=== PATIENT | female | born 1985 | race Caucasian/White ===

== ENCOUNTER 2019-01-22 19:48 | Emergency (ER) | payer OTHER ==
[2019-01-22 19:58] VITALS: BP 133/100; PULSE 66; TEMP 98.5; BMI 22.1
[2019-01-22] MEDS ORDERED: SODIUM CHLORIDE 1,000 ML IV ONE (20:23)
[2019-01-22] MEDS ORDERED: ONDANSETRON 4 MG/2 ML VIAL IVPB ONE (20:23)
[2019-01-22] MEDS ORDERED: ONDANSETRON 4 MG/2 ML VIAL ONE (20:25)
[2019-01-22] MEDS ORDERED: FAMOTIDINE 20 MG/50 ML IVPB 20 MG/50 ML MG IVPB ONE ×2 (20:45→20:48)
--- NOTE | 2019-01-22 20:47 | PDOC ---
Documentation entered by Gina Landin SCRIBE, acting as scribe for Beth Browne MD. Beth Browne MD: This documentation has been prepared by the varshaibe, Gina Landin SCRIBE, under my direction and personally reviewed by me in its entirety. I confirm that the documentation accurately reflects all work, treatment, procedures, and medical decision making performed by me. History of Present Illness - General Chief Complaint: Nausea/Vomiting Stated Complaint: N/V Time Seen by Provider: 01/22/19 20:07 History Source: Patient Exam Limitations: No Limitations - History of Present Illness Initial Comments: 01/22/19 20:59 Patient is a 33 year old female who presents to the ED with several episodes of NBNB nausea and vomiting since last night. Patient states she ate Thanksgiving leftovers when the nausea and vomiting began. Patient states she isn't able to uphold any foods or liquids. PAST MEDICAL HISTORY: no significant history PAST SURGICAL HISTORY: Transgender surgery FAMILY HISTORY: no pertinent history SOCIAL HISTORY: Pt lives with family and is employed. MEDICATIONS: reviewed ALLERGIES: NKA General:+ chills, + weakness No fevers, no weight loss HEENT: No change in vision. No sore throat,. No ear pain CardioVascular: No chest pain or shortness of breath Respiratory:No cough, or wheezing. Gastrointestinal:+nausea, +vomitting no diarrhea or constipation, No rectal bleeding Genitourinary: No dysuria, hematuria, or frequency Musculoskeletal: No joint or muscle pain or swelling Neurologic: No headache, vertigo, dizziness or loss of consciousness Psychiatric: nor depression Skin: No rashes or easy bruising Endocrine: no increased thirst or abnormal weight change Allergic: no skin or latex allergy All other systems reviewed and normal General: Well-nourished well-developed individual, no acute distress HEENT: Throat: Normal, tonsils normal, no erythema or exudate Neck: Supple, no meningeal signs, no lymphadenopathy Eyes::Pupils equal reactive and round, extraocular motion intact Chest: Nontender to palpation Cardiac: S1-S2 normal, regular rate and rhythm, no murmurs rubs or gallops Respiratory: Lungs clear to auscultation bilateral Abdomen: +mild tenderness epigastric.Soft, nondistended, normal bowel sounds, Extremities: Warm, dry, no cyanosis, clubbing, or edema Skin: No rashes Neuro: Alert and oriented x3, nonfocal exam, grossly intact, normal gait Psych: Normal mood and affect Assessment and plan: This is a 33-year-old female who comes in complaining of nausea vomiting x2 days. Patient states she has had multiple episodes of nausea and vomiting has been unable to keep anything in x2 days however her heart rate is normal and she does appear to be well-hydrated. Patient did have some mild epigastric tenderness for which she is given some Pepcid as is most likely secondary to some dyspepsia from all the vomiting Labs were sent and patient is being hydrated with normal saline and given antiemetics zofran 01/23/19 06:44 CT scan was negative for any acute pathology. Patient had an elevated white count however post fluids and antiemetics patient felt better patient discharged with prescriptions for antiemetics and will follow-up with her primary care doctor Past History - Past Medical History Allergies/Adverse Reactions: Allergies Allergy/AdvReac Type Severity Reaction Status Date / Time Iodine and Iodide Containing Allergy Verified 01/22/19 19:50 Produc shellfish derived Allergy Verified 01/22/19 19:50 Home Medications: Ambulatory Orders Estradiol 2 mg PO DAILY 01/22/19 Ondansetron [Zofran *Odt*] 4 mg SL TID #12 od.tablet 01/22/19 Asthma: No (CHILDHOOD) COPD: No - Psycho Social/Smoking Cessation Hx Smoking History: Never smoked Information on smoking cessation initiated: Yes *Physical Exam - Vital Signs Last Vital Signs Temp Pulse Resp BP Pulse Ox 98.5 F 66 16 133/100 100 01/22/19 19:51 01/22/19 19:51 01/22/19 19:51 01/22/19 19:51 01/22/19 19:51 ED Treatment Course - LABORATORY CBC & Chemistry Diagram: 01/22/19 20:25 01/22/19 20:25 - Medications Given in the ED: ED Medications Discontinued Medications Generic Name Dose Route Start Last Admin Trade Name Freq PRN Reason Stop Dose Admin Ondansetron HCl 8 mg 01/22/19 20:23 01/22/19 20:27 Zofran Injection IVPB 01/22/19 20:24 8 mg ONCE ONE Administration Discharge - Discharge Information Problems reviewed: Yes Clinical Impression/Diagnosis: Nausea & vomiting Qualifiers: Vomiting type: unspecified Vomiting Intractability: non-intractable Qualified Code(s): R11.2 - Nausea with vomiting, unspecified Gastritis Qualifiers: Gastritis type: unspecified gastritis Chronicity: acute Gastritis bleeding: without bleeding Qualified Code(s): K29.00 - Acute gastritis without bleeding Condition: Stable Disposition: HOME - Admission No - Additional Discharge Information Prescriptions: Ondansetron [Zofran *Odt*] 4 mg SL TID #12 od.tablet - Follow up/Referral Referrals: ON STAFF,NOT [Primary Care Provider] - - Patient Discharge Instructions Additional Instructions: Take an antiacid as needed for discomfort. For nausea take Zofran 1 tablet as often as every 6 hours as needed. Return to the emergency department immediately with ANY new, persistent or worsening symptoms. Continue any medications as previously prescribed by your physician. You should follow up with your primary doctor as soon as possible regarding today's emergency department visit. . Please make sure your doctor reviews the results of your emergency evaluation. Thank you for coming to the Emergency Department today for your care. It was a pleasure to see you today. Please note that your evaluation is INCOMPLETE until you follow-up with your doctor. - Post Discharge Activity
[2019-01-22 20:55] LABS: ALBUMIN 4.2 g/dl (3.4-5.0); BILIRUBIN,TOTAL 0.5 mg/dl (0.2-1); CALCIUM 8.9 mg/dl (8.5-10); CREATININE 0.8 mg/dl (0.55-1.3); POTASSIUM 3.3 mmol/L (3.5-5.1); TOT PROT 7.4 g/dl (6.4-8.2)
[2019-01-22 20:58] LABS: BASO % 0.2 % (0-2.0); EOS % 0.1 % (0-4.5); HEMATOCRIT 41.1 % (32.4-45.2); HEMOGLOBIN 13.8 GM/dl (10.7-15.3); LYMPH % 8.7 % (8-40); MCH 30.5 pg (25.7-33.7); MCHC 33.5 g/dl (32.0-36.0); MEAN CELL VOLUME 90.9 fl (80-96); MEAN PLT VOLUME 9.6 fl (7.5-11.1); MONO % 2.9 % (3.8-10.2); NEUT % 88.1 % (42.8-82.8); PLATELET COUNT 322 K/MM3 (134-434); RBC 4.52 M/mm3 (3.60-5.2); RDW 12.1 % (11.6-15.6); WHITE BLOOD COUNT 16.8 K/mm3 (4.0-10.8)
[2019-01-22] MEDS ORDERED: KETOROLAC TROMETHAMINE 30 MG/1 ML VIAL IVPUSH ONE (21:09)
[2019-01-22] MEDS ORDERED: MAG HYDROX/AL HYDROX/SIMETH 30 ML UNIT-DOSE CUP PO ONE (21:09)
[2019-01-22] MEDS ORDERED: MAG HYDROX/AL HYDROX/SIMETH 30 ML UNIT-DOSE CUP ONE (21:11)
[2019-01-22] MEDS ORDERED: KETOROLAC TROMETHAMINE 30 MG/1 ML VIAL ONE (21:11)
== END 2019-01-23 01:52 | disposition home or self-care (01) ==
LOC: FER 19:48
PROC: 3E033GC Introduction of Other Therapeutic Substance into Peripheral Vein, Percutaneous Approach (ICD-10-PCS; principal; 2019-01-22)
PROC: 3E0337Z Introduction of Electrolytic and Water Balance Substance into Peripheral Vein, Percutaneous Approach (ICD-10-PCS; 2019-01-22)
PROC: 3E033GC Introduction of Other Therapeutic Substance into Peripheral Vein, Percutaneous Approach (ICD-10-PCS; 2019-01-22)
PROC: 3E0333Z Introduction of Anti-inflammatory into Peripheral Vein, Percutaneous Approach (ICD-10-PCS; 2019-01-22)
PROC: 3E033NZ Introduction of Analgesics, Hypnotics, Sedatives into Peripheral Vein, Percutaneous Approach (ICD-10-PCS; 2019-01-22)
DX: K29.00 Acute gastritis without bleeding (principal); R11.2 Nausea with vomiting, unspecified; Z88.8 Allergy status to other drugs, medicaments and biological substances; Z91.013 Allergy to seafood; J45.998 Other asthma
CPT/HCPCS: 36415; 74177-TC; 76705-TC; 80053; 83690; 85025; 99283-25; J7030

== ENCOUNTER 2019-01-23 12:58 | Emergency (ER) | payer OTHER ==
[2019-01-23 13:11] VITALS: BP 140/85; PULSE 58; TEMP 98.7; BMI 49.6
--- NOTE | 2019-01-23 13:14 | PDOC ---
History of Present Illness - General Chief Complaint: Nausea/Vomiting Stated Complaint: N/V FOR THREE DAYS Time Seen by Provider: 01/23/19 13:06 History Source: Patient Exam Limitations: No Limitations - History of Present Illness Initial Comments: 01/23/19 13:13 HPI 33 year old female who presents to the ED with several episodes of NBNB nausea and vomiting x 2 days. Patient states she ate Thanksgiving leftovers when the symptoms started. Patient states she isn't able to uphold any foods/crackers or liquids. today symptoms continued unable to gloria zofran, a/w epigastric AP. unable to gloria PO intake. CT scan a/p from earlier today was negative for any acute pathology. small gallbladder polyp. Patient had an elevated white count however post fluids and antiemetics patient felt better patient discharged with prescriptions for antiemetics and will follow-up with her primary care doctor Labs and lytes with leukocytosis of 16.8K, low K 3.3. Lipase normal. She was given pepcid for dyspepsia, IVF and zofran. no new sick contacts. sexually active with boyfriend; last STD testing 6 mos ago and negative. also endorses vaginal discharge, but no dysuria, hematuria, urgency or frequency or changes with urination. PAST MEDICAL HISTORY: none PAST SURGICAL HISTORY: Transgender surgery - vaginoplasty, breast implants FAMILY HISTORY: no pertinent history SOCIAL HISTORY: Pt lives with family and is employed. +vaping nicotine use. + regular cannibis use, last used right before thanksgiving 2 days ago. MEDICATIONS: none ALLERGIES: NKA ROS: General: + chills, + weakness No fevers, no weight loss HEENT: No change in vision. No sore throat,. No ear pain CardioVascular: No chest pain or shortness of breath Respiratory:No cough, or wheezing. Gastrointestinal:+nausea, +vomiting +abdominal pain. no diarrhea or constipation, No rectal bleeding Genitourinary: No dysuria, hematuria, or frequency Musculoskeletal: No joint or muscle pain or swelling Neurologic: No headache, vertigo, dizziness or loss of consciousness Psychiatric: nor depression Skin: No rashes or easy bruising Endocrine: no increased thirst or abnormal weight change Allergic: no skin or latex allergy All other systems reviewed and normal Physical exam: General: Well-nourished well-developed individual, no acute distress HEENT: Throat: Normal, tonsils normal, no erythema or exudate Neck: Supple, no meningeal signs, no lymphadenopathy Eyes::Pupils equal reactive and round, extraocular motion intact Chest: Nontender to palpation Cardiac: S1-S2 normal, regular rate and rhythm, no murmurs rubs or gallops Respiratory: Lungs clear to auscultation bilateral Abdomen: +mild tenderness epigastric.Soft, nondistended, normal bowel sounds, Extremities: Warm, dry, no cyanosis, clubbing, or edema Skin: No rashes Neuro: Alert and oriented x3, nonfocal exam, grossly intact, normal gait Psych: Normal mood and affect 01/23/19 13:17 01/23/19 13:45 01/23/19 14:41 Past History - Past Medical History Allergies/Adverse Reactions: Allergies Allergy/AdvReac Type Severity Reaction Status Date / Time Iodine and Iodide Containing Allergy Verified 01/22/19 19:50 Produc shellfish derived Allergy Verified 01/22/19 19:50 Home Medications: Ambulatory Orders Estradiol 2 mg PO DAILY 01/22/19 Ondansetron [Zofran *Odt*] 4 mg SL TID #12 od.tablet 01/22/19 Cephalexin Monohydrate [Keflex -] 500 mg PO BID 5 Days #9 capsule 01/23/19 Metoclopramide HCl [Reglan -] 10 mg PO TID PRN #9 tablet 01/23/19 Asthma: No (CHILDHOOD) COPD: No - Psycho Social/Smoking Cessation Hx Smoking History: Never smoked Have you smoked in the past 12 months: No Information on smoking cessation initiated: Yes Hx Alcohol Use: No Drug/Substance Use Hx: No *Physical Exam - Vital Signs Last Vital Signs Temp Pulse Resp BP Pulse Ox 98.7 F 58 L 20 140/85 100 01/23/19 12:59 01/23/19 12:59 01/23/19 12:59 01/23/19 12:59 01/23/19 12:59 ED Treatment Course - LABORATORY CBC & Chemistry Diagram: 01/23/19 14:10 01/23/19 14:10 Medical Decision Making - Medical Decision Making 01/23/19 14:42 Vital Signs Temp Pulse Resp BP Pulse Ox 98.7 F 58 L 20 140/85 100 01/23/19 12:59 01/23/19 12:59 01/23/19 12:59 01/23/19 12:59 01/23/19 12:59 Vital signs reviewed and within normal limits, no fever, no systemic findings or symptoms. Abdomen is soft and minimally tender, no rebound or guarding or peritoneal findings Results from earlier this morning were reviewed including her laboratory work. She did have a leukocytosis of over 16 K, electrolytes are only notable for low potassium. lipase and lfts normal. CT was done and was unremarkable for any appendicitis or infection. Quadrant ultrasound with only gallbladder polyps but no stones or signs of cholecystitis. Patient returns today with similar symptoms and difficulty tolerating oral intake. Will trial IV Reglan, additional fluids, Pepcid and potassium repletion and reassess. Lab results today with improved white count down to 14 K, K still at 3.3, unclear if repleted yesterday. UA with nitrites and trace leuk esterase, blood and protein. Patient does have vaginal discharge and symptoms of a UTI so we will treat with antibiotics, Keflex course x1 week. Follow-up on urine cultures, not enough for microscopy. 01/23/19 14:51 on reassessment, feels improved. no nausea/vomiting here, gloria PO intake, completed K, IVF, reglan, ativan and abdomen soft nontender, sx are most likely enteritis related to recent holiday meal Cessation from vaping tobacco and cannabis is advised as there could be a component of hyperemesis related to cannabis use syndrome. Patient was given Ativan for the component of her symptoms with improvement. Pt to be discharged in stable condition. Patient made aware of clinical impression, treatment recommendations and disposition plan, return precautions discussed (including but not limited to new or persistent/worsening symptoms, pain, fevers, or signs of infection, chest pain, respiratory distress, inability to tolerate oral intake, dehydration, syncope, or neurologic changes) . Follow up with PMD and/or specialist as recommended, follow up information provided, take medications as instructed for duration of time. continue with supportive care, avoid triggers and precipitants. All questions answered to patient's satisfaction and expressed understanding and comfort with this. At the time of discharge, the patient is alert, clinically improved, tolerating po and verbalizes understanding of instructions, satisfied with the care received and felt comfortable with the plan. Patient does not suffer from an acute life- threatening medical condition at this time and is safe for outpatient follow- up. Discharge - Discharge Information Problems reviewed: Yes Clinical Impression/Diagnosis: Nausea & vomiting Qualifiers: Vomiting type: unspecified Vomiting Intractability: unspecified Qualified Code( s): R11.2 - Nausea with vomiting, unspecified UTI (urinary tract infection) Qualifiers: Urinary tract infection type: site unspecified Condition: Good Disposition: HOME - Admission No - Additional Discharge Information Prescriptions: Cephalexin Monohydrate [Keflex -] 500 mg PO BID 5 Days #9 capsule Metoclopramide HCl [Reglan -] 10 mg PO TID PRN #9 tablet PRN Reason: nausea vomiting - Follow up/Referral Referrals: [facility] [Provider Group] [facility] [Provider [facility]] - Patient Discharge Instructions Patient Printed Discharge Instructions: DI for Nausea -- Adult, DI for Vomiting -- Adult Additional Instructions: 1) Please follow-up with your primary care doctor in the next 1-2 days. Please call tomorrow for for any urgent issues. you most likely have an enteritis from food poisoning or viral infection you should also cut down and stop using nicotine products and marijuana, as that could exacerbate your symptoms. you also have a mild urinary tract infection 2) You were given a copy of the tests performed today. Please bring the results with you and review them with your primary care doctor. Your laboratory / imaging results were normal, low potassium that was repleted, white blood cell count decreased; your urine shows preliminary infection, so follow up on the culture results. 3) If you have any worsening of symptoms or any other concerns please return to the ED immediately. Return if worsening symptoms including fevers, headache, vomiting, visual or hearing disturbances, abdominal pain, chest pain, shortness of breath, syncope, dehydration, inability to take things by mouth/vomiting, altered mental status, or worsening concerning symptoms. 4) Please continue taking your home medications as directed. your medications on discharge include reglan three times a day as needed for nausea vomiting, keflex twice a day for UTI x 5 days . side effects may include upset stomach, abdominal pain, vomiting, or diarrhea. do not drink alcohol with your medications. Stay well hydrated and rest adequately. Make an appointment. If you cannot follow-up with your primary care doctor please return to the ED - Post Discharge Activity Work/Back to School Note: Back to Work
[2019-01-23] MEDS ORDERED: SODIUM CHLORIDE 0.9% 500 ML INFUS.BAG IV ONE ×2 (13:57→14:37)
[2019-01-23] MEDS ORDERED: FAMOTIDINE 20 MG/50 ML IVPB 20 MG/50 ML MG IVPB ONE ×2 (13:57→14:11)
[2019-01-23] MEDS ORDERED: METOCLOPRAMIDE HCL INJECTION 10 MG/2 ML VIAL IVPUSH ONE (13:58)
[2019-01-23] MEDS ORDERED: POTASSIUM CHLORIDE TABS 20 MEQ TABLET.ER (FP) PO ONE ×2 (14:01→14:18)
[2019-01-23] MEDS ORDERED: LORazepam 2 MG/ML SDV VIAL ONE (14:11)
[2019-01-23] MEDS ORDERED: METOCLOPRAMIDE HCL INJECTION 10 MG/2 ML VIAL ONE (14:18)
[2019-01-23 14:34] LABS: BASO % 0.3 % (0-2.0); HEMATOCRIT 42.1 % (32.4-45.2); HEMOGLOBIN 14.1 GM/dl (10.7-15.3); LYMPH % 8.8 % (8-40); MCH 30.6 pg (25.7-33.7); MCHC 33.4 g/dl (32.0-36.0); MEAN CELL VOLUME 91.7 fl (80-96); MEAN PLT VOLUME 9.8 fl (7.5-11.1); MONO % 1.4 % (3.8-10.2); NEUT % 89.5 % (42.8-82.8); PLATELET COUNT 315 K/MM3 (134-434); RBC 4.59 M/mm3 (3.60-5.2); RDW 12.6 % (11.6-15.6); WHITE BLOOD COUNT 14.9 K/mm3 (4.0-10.8)
[2019-01-23] MEDS ORDERED: POTASSIUM CHLORIDE ORAL LIQUID 20 MEQ/15 ML PO ONE (14:40)
[2019-01-23 14:46] LABS: ALBUMIN 4.5 g/dl (3.4-5.0); BILIRUBIN,TOTAL 0.8 mg/dl (0.2-1); CALCIUM 9.1 mg/dl (8.5-10); CREATININE 0.9 mg/dl (0.55-1.3); POTASSIUM 3.3 mmol/L (3.5-5.1); TOT PROT 7.8 g/dl (6.4-8.2)
[2019-01-23] MEDS ORDERED: MAG HYDROX/AL HYDROX/SIMETH 30 ML UNIT-DOSE CUP PO ONE (15:03)
[2019-01-23] MEDS ORDERED: CEPHALEXIN MONOHYDRATE 500 MG CAPSULE (UD) PO ONE (15:03)
[2019-01-23] MEDS ORDERED: MAG HYDROX/AL HYDROX/SIMETH 30 ML UNIT-DOSE CUP ONE (15:12)
[2019-01-23] MEDS ORDERED: CEPHALEXIN MONOHYDRATE 500 MG CAPSULE (UD) ONE (15:13)
== END 2019-01-23 16:30 | disposition home or self-care (01) ==
LOC: FER 12:58
PROC: 3E033GC Introduction of Other Therapeutic Substance into Peripheral Vein, Percutaneous Approach (ICD-10-PCS; principal; 2019-01-23)
PROC: 3E033NZ Introduction of Analgesics, Hypnotics, Sedatives into Peripheral Vein, Percutaneous Approach (ICD-10-PCS; 2019-01-23)
PROC: 3E033GC Introduction of Other Therapeutic Substance into Peripheral Vein, Percutaneous Approach (ICD-10-PCS; 2019-01-23)
DX: R11.2 Nausea with vomiting, unspecified (principal); J45.998 Other asthma; Z88.8 Allergy status to other drugs, medicaments and biological substances; Z91.013 Allergy to seafood
CPT/HCPCS: 36415; 80053; 81003; 85025; 87086; 96365; 96375; 99283-25